=== PATIENT | male | born 1970 | race Hispanic/Latino ===

== ENCOUNTER 2019-07-17 08:36 | Emergency (ER) | payer BC ==
[2019-07-17] MEDS ORDERED: METHYLPREDNISOLONE SOD SUCC 40MG/ML 1ML ONE (09:00)
== END 2019-07-17 09:31 | disposition home or self-care (01) ==
LOC: EDH 08:36
DX: L50.1 Idiopathic urticaria (principal); Z87.891 Personal history of nicotine dependence
CPT/HCPCS: 96372; 99284; J2920